=== PATIENT | male | born 1940 | race Caucasian/White ===

== ENCOUNTER 2020-12-31 22:02 | Emergency (ER) | payer OTHER ==
[2020-12-31 23:54] LABS: Bilirubin Neg (Negative); Blood, Urine 250 (Negative); Clarity Slightly Cloudy (Clear); Glucose, Urine (Dipstick) Normal (Negative); Ketone, Urine Negative (Negative); Leukocyte 500 (Negative); Nitrite Negative (Negative); Protein, Urine (Dipstick) 30 mg/dl (Neg-Trace); Specific Gravity, Urine 1.015 (1.002-1.036); Urobilinogen Normal mg/dL (Less than 2)
[2021-01-01 00:11] LABS: Bacteria/HPF None Seen HPF (None Seen); Squamous Epithelial 0-3 HPF (0-3)
== END 2020-12-31 23:57 ==
LOC: CSHERS 22:02
DX: R35.0 Frequency of micturition (principal); F03.90 Unspecified dementia, unspecified severity, without behavioral disturbance, psychotic disturbance, mood disturbance, and anxiety; I10 Essential (primary) hypertension; I25.10 Atherosclerotic heart disease of native coronary artery without angina pectoris; I48.91 Unspecified atrial fibrillation; Z86.16 Personal history of COVID-19
CPT/HCPCS: 51702; 81003; 81015

== ENCOUNTER 2021-01-10 13:43 | Emergency (ER) | payer OTHER ==
[2021-01-10 15:11] LABS: Hemoglobin 12.2 g/dL (13.5-17.5); Mean Corpuscular HGB CONC 32.8 g/dL (32.0-36.0); Mean Corpuscular Volume 85.3 fl (81.2-95.1); Platelet Count 165 10x3/uL (150-450); RBC Distribution Width 14.9 % (11.5-14.5); Red Blood Cell (RBC) Count 4.36 10x6/uL (4.32-5.72); White Blood Cell (WBC) Count 14.6 10x3/uL (3.5-10.5)
[2021-01-10 15:14] LABS: MDiff Complete? YES
[2021-01-10 15:16] LABS: ALT (SGPT) 21 U/L (8-55); AST (SGOT) 37 U/L (5-34); Albumin 2.5 g/dL (3.4-4.8); Alkaline Phosphatase 97 U/L (40-110); Anion Gap 16 mmol/L (10-20); BUN (Urea Nitrogen) 68 mg/dL (8.4-25.7); Bilirubin, Total 1.3 mg/dL (0.2-1.2); Calc. Creatinine Clearance 0 mL/min (70-130); Calcium 7.8 mg/dL (7.8-10.44); Carbon Dioxide 30 mmol/L (23-31); Chloride 95 mmol/L (98-107); Globulin 3.6 g/dL (2.4-3.5); Glucose 125 mg/dL (83-110); Potassium 3.1 mmol/L (3.5-5.1); Protein, Total 6.1 g/dL (5.8-8.1); Sodium 138 mmol/L (136-145)
[2021-01-10] MEDS ORDERED: Cefepime 1 GM VIAL ONE (15:25)
[2021-01-10 15:44] LABS: Band 4 % (5-11); Lymphocytes 1 % (21-51); Monocytes 3 % (0-10); Neutrophil 92 % (42-75)
[2021-01-10 15:45] LABS: Platelet Morphology Comment Appears Adequate; Toxic Granulation SLIGHT
[2021-01-10 15:49] LABS: CKMB 2.8 ng/mL (0-6.6)
[2021-01-10] MEDS ORDERED: Lorazepam 2 MG/ML VIAL ONE (17:48)
[2021-01-11] MEDS ORDERED: Haloperidol Lactate 5 MG/ML VIAL ONE (02:01)
[2021-01-11] MEDS ORDERED: Cefepime 2 GM VIAL ONE (02:01)
[2021-01-11] MEDS ORDERED: Vancomycin HCl 750 MG in Sodium Chloride 0.9% 250 ML 250 ML IVPB SCH (04:30)
== END 2021-01-11 12:04 | disposition short-term general hospital (02) ==
LOC: CSHERS 13:43 → EEVIPCON 13:43 → CSHERS 01-11 12:04
DX: J18.9 Pneumonia, unspecified organism (principal); R09.02 Hypoxemia; I48.91 Unspecified atrial fibrillation; I10 Essential (primary) hypertension; I25.10 Atherosclerotic heart disease of native coronary artery without angina pectoris; F03.90 Unspecified dementia, unspecified severity, without behavioral disturbance, psychotic disturbance, mood disturbance, and anxiety; Z86.16 Personal history of COVID-19; Z79.899 Other long term (current) drug therapy
CPT/HCPCS: 71045; 80053; 82553; 83605; 84484; 85025; 87040; 93005; 96365; 96366; 96367; 96375; J0692; J1630; J2060; J3370; J7050